=== PATIENT | female | born 1950 | race African-American/Black ===

== ENCOUNTER 2023-02-07 09:19 | Emergency (ER) | payer OTHER ==
[2023-02-07 09:31] VITALS: BP 119/83; PULSE 88; RESP 18; TEMP 99.3; BMI 32.8
[2023-02-07] MEDS ORDERED: TETRACAINE 0.5% HCL 0.6ML DROPPER.BOTTLE OS ONE (10:09)
[2023-02-07] MEDS ORDERED: FLUORESCEIN NA 1 EA STRIP OS ONE (10:10)
[2023-02-07] MEDS ORDERED: FLUORESCEIN NA 1 EA STRIP ONE (10:20)
[2023-02-07] MEDS ORDERED: TETRACAINE 0.5% OPHTH SOLN 2 ML BOTTLE ONE (10:20)
== END 2023-02-07 10:51 | disposition home or self-care (01) ==
LOC: JERFT 09:19
DX: H57.9 Unspecified disorder of eye and adnexa (principal); H10.13 Acute atopic conjunctivitis, bilateral; J30.9 Allergic rhinitis, unspecified
CPT/HCPCS: 99283-25

== ENCOUNTER 2023-05-16 04:18 | Day surgery (SDC) | payer OTHER ==
[2023-05-14 18:28] VITALS: BMI 32.4
[2023-05-16] MEDS ORDERED: TRANEXAMIC ACID 1000 MG/10 ML VIAL IVPUSH ONE (06:30)
[2023-05-16] MEDS ORDERED: ACETAMINOPHEN 1000 MG/100 ML BAG IVPB ONE (06:30)
[2023-05-16] MEDS ORDERED: PHENAZOPYRIDINE HCL 100 MG TABLET (FP) PO ONE (06:30)
[2023-05-16] MEDS ORDERED: CEFAZOLIN 2 GM in DEXTROSE 5%-WATER - 100 ML IVPB ONE (06:30)
[2023-05-16] MEDS ORDERED: GABAPENTIN 300 MG CAPSULE PO ONE (06:30)
[2023-05-16] MEDS ORDERED: ceFAZolin SODIUM 1 GM VIAL ONE (06:58)
[2023-05-16] MEDS ORDERED: GABAPENTIN 300 MG CAPSULE ONE (06:59)
[2023-05-16] MEDS ORDERED: PHENAZOPYRIDINE HCL 100 MG TABLET (FP) ONE (07:00)
[2023-05-16] MEDS ORDERED: ROPIVACAINE HCL 0.5% 30ML VIAL ONE (07:32)
[2023-05-16] MEDS ORDERED: BUPIVACAINE HCL/PF 0.5% (5MG/ML) 10 ML VIAL ONE (07:33)
[2023-05-16] MEDS ORDERED: MIDAZOLAM HCL 2 MG/2 ML SINGLE DOSE VIAL ONE (07:34)
[2023-05-16] MEDS ORDERED: ROCURONIUM BROMIDE 50 MG/5 ML SYRINGE ONE (07:34)
[2023-05-16] MEDS ORDERED: PROPOFOL 20 ML ONE (07:34)
[2023-05-16] MEDS ORDERED: LIDOCAINE HCL/PF 2% SDV 5ML VIAL ONE (08:08)
[2023-05-16] MEDS ORDERED: SODIUM CHLORIDE 0.9% P/F 10 ML VIAL IJ ONE (08:22)
[2023-05-16] MEDS ORDERED: ceFAZolin SODIUM 1 GM VIAL IVPB ONE (08:24)
[2023-05-16] MEDS ORDERED: ONDANSETRON 4 MG/2 ML VIAL ONE (08:25)
[2023-05-16] MEDS ORDERED: METOCLOPRAMIDE HCL INJECTION 10 MG/2 ML VIAL ONE (08:25)
[2023-05-16] MEDS ORDERED: DEXAMETHASONE SOD PHOSPHATE 4 MG/1 ML VIAL ONE (08:25)
[2023-05-16] MEDS ORDERED: METOPROLOL TARTRATE 5 MG/5 ML VIAL ONE (08:56)
[2023-05-16] MEDS ORDERED: SUGAMMADEX SODIUM 200 MG/2 ML VIAL ONE (09:09)
[2023-05-16] MEDS ORDERED: hydrALAZINE HCL 20 MG/ML VIAL ONE (09:36)
[2023-05-16] MEDS ORDERED: ONDANSETRON 4 MG/2 ML VIAL IVPUSH PRN ×2 (09:56→10:45)
[2023-05-16] MEDS ORDERED: PROMETHAZINE HCL 25 MG/1 ML VIAL IVPB PRN (09:56)
[2023-05-16] MEDS ORDERED: LACTATED RINGERS SOLUTION 1,000 ML IV SCH (10:00)
[2023-05-16] MEDS ORDERED: ACETAMINOPHEN INJECTION 100 ML IVPB ONE (10:34)
[2023-05-16] MEDS ORDERED: IBUPROFEN 800 MG/8 ML IJ IVPB PRN (10:45)
[2023-05-16] MEDS ORDERED: BISACODYL 5 MG TABLET.DR (FP) PO PRN (10:45)
[2023-05-16] MEDS ORDERED: oxyCODONE HCL 5 MG TABLET PO PRN ×2 (10:45)
[2023-05-16] MEDS ORDERED: DOCUSATE SODIUM 100 MG CAPSULE (FP) PO PRN (10:45)
[2023-05-16] MEDS ORDERED: ACETAMINOPHEN 325 MG TABLET (FP) PO PRN (10:45)
[2023-05-16 14:18] VITALS: RESP 18
[2023-05-16] MEDS: CEFAZOLIN 1 GM in DEXTROSE 5%-WATER - 50 ML IVPB SCH (18:00)
[2023-05-16 19:39] LABS: HEMATOCRIT 40.2 % (32.4-45.2); HEMOGLOBIN 13.5 GM/dL (10.7-15.3); MCH 30.3 pg (25.7-33.7); MCHC 33.6 g/dl (32.0-36.0); MEAN CELL VOLUME 90.2 fl (80-96); MEAN PLT VOLUME 8.7 fl (7.5-11.1); PLATELET COUNT 226 10^3/uL (134-434); RBC 4.46 M/mm3 (3.60-5.2); RDW 14.4 % (11.6-15.6); WHITE BLOOD COUNT 8.7 K/mm3 (4.0-10.0)
[2023-05-16 20:16] LABS: POTASSIUM 4.2 mmol/L (3.5-5.1)
[2023-05-16 20:19] LABS: CALCIUM 8.9 mg/dL (8.5-10.1)
[2023-05-16 20:20] LABS: BLOOD UREA NITROGEN 8.5 mg/dL (7-18)
[2023-05-16 20:23] LABS: CREATININE 1.1 mg/dL (0.55-1.3)
[2023-05-16] MEDS: SIMETHICONE 80 MG TAB.CHEW (FP) PO PRN (21:17)
[2023-05-17] MEDS: CEFAZOLIN 1 GM in DEXTROSE 5%-WATER - 50 ML IVPB SCH ×2 (01:43→09:08)
[2023-05-17 07:03] LABS: HEMATOCRIT 36.8 % (32.4-45.2); MCH 30.1 pg (25.7-33.7); MCHC 32.7 g/dl (32.0-36.0); MEAN CELL VOLUME 92.2 fl (80-96); MEAN PLT VOLUME 8.8 fl (7.5-11.1); PLATELET COUNT 189 10^3/uL (134-434); RBC 3.99 M/mm3 (3.60-5.2); RDW 14.2 % (11.6-15.6)
[2023-05-17 07:23] LABS: POTASSIUM 4.5 mmol/L (3.5-5.1)
[2023-05-17 07:25] LABS: BLOOD UREA NITROGEN 8.2 mg/dL (7-18); CALCIUM 8.4 mg/dL (8.5-10.1)
[2023-05-17 07:29] LABS: CREATININE 0.8 mg/dL (0.55-1.3)
[2023-05-17] MEDS ORDERED: ACETAMINOPHEN 325 MG TABLET (FP) PO PRN (07:44)
[2023-05-17] MEDS ORDERED: oxyCODONE HCL 5 MG TABLET PO PRN ×3 (07:45→11:31)
[2023-05-17] MEDS ORDERED: ENOXAPARIN NA (PORCINE) 40 MG/0.4 ML DISP.SYRIN SQ SCH (10:00)
[2023-05-17 10:05] VITALS: BP 138/78; PULSE 78; TEMP 98.6
[2023-05-17] MEDS: SIMETHICONE 80 MG TAB.CHEW (FP) PO PRN (15:17)
== END 2023-05-17 16:10 | disposition home or self-care (01) ==
LOC: JASUSAT 04:18 → J3W 13:57 → JASUSAT 05-17 16:10
PROVIDERS: ATTEND Obstetrics & Gynecology
PROC: 8E0W4CZ Robotic Assisted Procedure of Trunk Region, Percutaneous Endoscopic Approach (ICD-10-PCS; 2023-05-16)
PROC: 0UT9FZZ Resection of Uterus, Via Natural or Artificial Opening With Percutaneous Endoscopic Assistance (ICD-10-PCS; principal; 2023-05-16 07:30)
PROC: 0UT7FZZ Resection of Bilateral Fallopian Tubes, Via Natural or Artificial Opening With Percutaneous Endoscopic Assistance (ICD-10-PCS; 2023-05-16 07:30)
DX: D25.1 Intramural leiomyoma of uterus (principal); D25.2 Subserosal leiomyoma of uterus; C57.02 Malignant neoplasm of left fallopian tube; D06.7 Carcinoma in situ of other parts of cervix
CPT/HCPCS: 58552; S2900; 36415; 80048; 85027; 88305-TC; 88307-TC; 88341-TC; 88342-TC; 94760